=== PATIENT | male | born 1955 | race Caucasian/White ===

== ENCOUNTER → 2023-01-20 | Outpatient (CLI) | payer MEDICARE | END | disposition home or self-care (01) | LOC: PLD 11:04 → LAB SHORT 11:04 → LAB 11:04 | DX: L57.0 Actinic keratosis (principal) | CPT/HCPCS: 88305 ==

== ENCOUNTER 2023-02-22 07:31 | Observation (INO) | payer MEDICARE ==
[~2023-02-22] VITALS: Ht 177.8 cm; Wt 106.5 kg
[2023-02-22] MEDS ORDERED: METFORMIN HCL1000 M6 PO (07:46)
[2023-02-22] MEDS ORDERED: LATA.005SO BOTHEYES (07:46)
[2023-02-22] MEDS ORDERED: ROSUVASTATIN CA40 MG PO (07:46)
[2023-02-22] MEDS ORDERED: OMEGA-3 + D SO1 EACH PO (07:46)
[2023-02-22] MEDS ORDERED: OLMESARTAN-HCT1 EAC4 PO (07:46)
[2023-02-22] MEDS ORDERED: Toprol Xl200 MG (07:46)
[2023-02-22] MEDS ORDERED: FENOFIBRATE30 MG PO (07:47)
[2023-02-22] MEDS ORDERED: TRAM50 PO (07:47)
[2023-02-22] MEDS ORDERED: EZETIMIBE10 M6 PO (07:47)
[2023-02-22] MEDS ORDERED: SPIR25 (07:48)
[2023-02-22 08:15] LABS: BASOPHILS ABSOLUTE AUTO 0.02 K/mm3 (0.00-0.23); BASOPHILS PERCENT AUTO 0 % (0-2); EOSINOPHILS ABSOLUTE AUTO 0.18 K/mm3 (0.00-0.68); EOSINOPHILS PERCENT AUTO 4 % (0-6); Hematocrit 32.5 % (37.0-53.0); Hemoglobin 10.7 g/dL (13.5-17.5); IMMATURE GRAN ABSOLUTE AUTO 0.01 K/mm3 (0.00-0.10); IMMATURE GRAN PERCENT AUTO 0 % (0-1); LYMPHOCYTES ABSOLUTE AUTO 1.23 K/mm3 (0.84-5.20); LYMPHOCYTES PERCENT AUTO 24 % (21-46); MONOCYTES ABSOLUTE AUTO 0.53 K/mm3 (0.16-1.47); MONOCYTES PERCENT AUTO 10 % (4-13); Mean Corpuscular HGB Conc 32.9 g/dL (31.5-36.5); Mean Corpuscular Volume 91 fL (80-100); Mean Platelet Volume 10.3 fL (9.1-12.4); NEUTROPHILS ABSOLUTE AUTO 3.18 K/mm3 (1.96-9.15); NEUTROPHILS PERCENT AUTO 62 % (41-73); Platelet Count 216 K/mm3 (150-400); RDW Coefficient Variation 13.2 % (11.7-14.2); RDW Standard Deviation 44.1 fL (35.1-46.3); Red Blood Cell Count 3.57 M/mm3 (4.30-5.90); White Blood Cell Count 5.15 K/mm3 (4.00-11.30)
[2023-02-22 08:27] LABS: Albumin, Blood 3.9 g/dL (3.4-5.0); Albumin/Globulin Ratio 1.1 (0.8-1.8); Bilirubin, Total 0.3 mg/dL (0.1-1.0); Bun/Creatinine Ratio 22.3 (12.0-20.0); Calcium, Blood 9.2 mg/dL (8.5-10.1); Creatinine, Blood 1.57 mg/dL (0.60-1.20); Globulin, Blood 3.5 g/dL (2.2-4.0); Total Protein, Blood 7.4 g/dL (6.4-8.2)
[2023-02-22 15:25] VITALS: BP 158/82
[2023-02-22] MEDS ORDERED: ASPIR 8181 M1 PO (15:56)
--- NOTE | 2023-02-22 18:15 | NUR ---
SHIFT SUMMARY PT A&OX4 AND PLEASANT. PT DENIES FEELING SOB BUT STATES MINIMAL CP WITH EXERCTION. PT SCHEDULED FOR STRESS TEST TOMORROW MORNING. AT BEDSIDE DURING AFTERNOON. INDEPENDENT TO BATHROOM BUT EDUCATED PT ON USE OF CALL LIGHT TO HELP REMOVE SCD'S IF NEEDED. BED IN LOWEST POSITION AND CALL LIGHT IN REACH.
[2023-02-22 20:26] VITALS: BP 152/78
--- NOTE | 2023-02-22 23:58 | NUR ---
LATE NOTE. CONVERSATION WITH JESSICA IN NUCLEAR MEDICINE EARLIER THIS EVENING. JESSICA REPORTED TO ME THAT HE HAD A CONVERSATION WITH DR. RIZVI EARLIER IN THE DAY IN WHICH HE WAS INFORMED DMITRI WANTED A 2 PART STRESS TEST COMPLETED ON SATURDAY FOR THE PT. JESSICA HAD NOT RECEIVED AN ORDER FOR THIS AND REQUESTED THAT I PUT THE ORDER IN SO THE PROCEDURE CAN BE COMPLETED ON PT TOMORROW DURING THE DAY. ENTERED ORDER PER SPECIFICATION VIA VERBAL ORDER FROM DR. RIZVI TO JESSICA IN NUCLEAR MEDICINE.
[2023-02-23 03:27] VITALS: BP 150/83
--- NOTE | 2023-02-23 03:59 | NUR ---
SHIFT UNREMARKABLE. CALL EARLY IN SHIFT FROM JESSICA IN NUCLEAR MEDICINE, REQUESTING ORDER FOR STRESS TEST VERBALLY REQUESTED TO HIM FROM DR. RIZVI. ORDER INPUT. SEE RELATED NOTE FOR DETAILS. SHIFT HAS OTHERWISE BEEN UNREMARKABLE. NPO SINCE MIDNIGHT OUTSIDE OF VERY SMALL AMOUNTS OF WATER AND PRN TYLENOL FOR MILD HEADACHE THIS MORNING. PT HAS BEEN AOX4, PLEASANT, COOPERATIVE WITH CARE THROUGHOUT SHIFT. BED LOCKED IN LOWEST POSITION. CALL LIGHT LEFT WITHIN REACH.
[2023-02-23 06:36] LABS: BASOPHILS ABSOLUTE AUTO 0.02 K/mm3 (0.00-0.23); BASOPHILS PERCENT AUTO 0 % (0-2); EOSINOPHILS ABSOLUTE AUTO 0.13 K/mm3 (0.00-0.68); EOSINOPHILS PERCENT AUTO 2 % (0-6); Hematocrit 34.7 % (37.0-53.0); Hemoglobin 11.3 g/dL (13.5-17.5); IMMATURE GRAN ABSOLUTE AUTO 0.02 K/mm3 (0.00-0.10); IMMATURE GRAN PERCENT AUTO 0 % (0-1); LYMPHOCYTES ABSOLUTE AUTO 1.35 K/mm3 (0.84-5.20); LYMPHOCYTES PERCENT AUTO 25 % (21-46); MONOCYTES ABSOLUTE AUTO 0.56 K/mm3 (0.16-1.47); MONOCYTES PERCENT AUTO 10 % (4-13); Mean Corpuscular HGB 29.7 pg (26.0-34.0); Mean Corpuscular HGB Conc 32.6 g/dL (31.5-36.5); Mean Corpuscular Volume 91 fL (80-100); Mean Platelet Volume 10.4 fL (9.1-12.4); NEUTROPHILS ABSOLUTE AUTO 3.32 K/mm3 (1.96-9.15); NEUTROPHILS PERCENT AUTO 61 % (41-73); Platelet Count 203 K/mm3 (150-400)
[2023-02-23 06:53] LABS: Albumin, Blood 3.9 g/dL (3.4-5.0); Albumin/Globulin Ratio 1.2 (0.8-1.8); Bilirubin, Total 0.4 mg/dL (0.1-1.0); Bun/Creatinine Ratio 21.1 (12.0-20.0); Calcium, Blood 9.7 mg/dL (8.5-10.1); Creatinine, Blood 1.52 mg/dL (0.60-1.20); Globulin, Blood 3.3 g/dL (2.2-4.0); Magnesium, Blood 1.4 mg/dL (1.6-2.4); Potassium, Blood 4.9 mmol/L (3.5-5.5); Total Protein, Blood 7.2 g/dL (6.4-8.2)
[2023-02-23 07:13] VITALS: BP 156/86
[2023-02-23 14:45] VITALS: BP 144/83
--- NOTE | 2023-02-23 19:00 | NUR ---
SHIFT SUMMARY PATIENT IS ALERT AND ORIENTED. PATIENT HAS HAD NO ACUTE EVENTS. PATIENT HAD STRESS TEST TODAY. PATIENT HAD ABNORMAL STRESS TEST. ANGIOGRAM PLANNED FOR TOMORROW MORNING. NPO AT MIDNIGHT. PATIENT IS AWARE.
[2023-02-23 20:24] VITALS: BP 147/93
[2023-02-24] VITALS (9 sets, daily range): BP systolic 145–168; BP diastolic 77–109
--- NOTE | 2023-02-24 04:06 | NUR ---
SHIFT SUMMARY; NO ACUTE CHANGES OVERNIGHT. THE PT IS AXO X4 AND INDEPENDENT IN THE ROOM. THE PT HAS BEEN SLEEPING FOR THE MAJORITY OF THE NIGHT. THE PT HAS BEEN NPO SINCE MIDNIGHT IN PREPERATION TO GO TO THE [employer]TRY AUDIT CLERK TODAY. THE PT HAS HIS LAST BAG OF NS INFUSING NOW. TELE IS IN PLACE. THE PT DENIES ANY CHEST PAIN/PRESSURE, PAIN, SOB OR N/V THIS SHIFT. CURRENTLY THE PT IS SLEEPING IN BED WITH THE BED IN THE LOWEST POSITION AND THE CALL LIGHT AT BEDSIDE.
[2023-02-24 09:40] LABS: BASOPHILS ABSOLUTE AUTO 0.02 K/mm3 (0.00-0.23); BASOPHILS PERCENT AUTO 0 % (0-2); EOSINOPHILS PERCENT AUTO 2 % (0-6); Hemoglobin 11.1 g/dL (13.5-17.5); IMMATURE GRAN ABSOLUTE AUTO 0.01 K/mm3 (0.00-0.10); IMMATURE GRAN PERCENT AUTO 0 % (0-1); LYMPHOCYTES ABSOLUTE AUTO 0.98 K/mm3 (0.84-5.20); LYMPHOCYTES PERCENT AUTO 19 % (21-46); MONOCYTES ABSOLUTE AUTO 0.51 K/mm3 (0.16-1.47); MONOCYTES PERCENT AUTO 10 % (4-13); Mean Corpuscular HGB 29.7 pg (26.0-34.0); Mean Corpuscular HGB Conc 32.6 g/dL (31.5-36.5); Mean Corpuscular Volume 91 fL (80-100); Mean Platelet Volume 10.1 fL (9.1-12.4); NEUTROPHILS PERCENT AUTO 68 % (41-73); Platelet Count 213 K/mm3 (150-400); RDW Coefficient Variation 13.1 % (11.7-14.2); RDW Standard Deviation 43.6 fL (35.1-46.3); Red Blood Cell Count 3.74 M/mm3 (4.30-5.90); White Blood Cell Count 5.12 K/mm3 (4.00-11.30)
[2023-02-24 09:56] LABS: Bun/Creatinine Ratio 19.6 (12.0-20.0); Calcium, Blood 9.3 mg/dL (8.5-10.1); Creatinine, Blood 1.43 mg/dL (0.60-1.20); Potassium, Blood 4.7 mmol/L (3.5-5.5)
--- NOTE | 2023-02-24 12:33 | NUR ---
[facility] TAKEN TO [facility] REPORT CALLED TO SHAYNA VALLE IN PCU FOR AFTER PROCEDURE. FAMILY AWARE OF NEW ROOM IN PCU.
--- NOTE | 2023-02-24 14:29 | NUR ---
POST ANIMAL BIOLOGIST TO PCU 05. RIGHT RADIAL, TR BAND IN PLACE WITH ARM BOARD. DENIES CHEST PAIN/PRESSURE. VERY SMALL HEMATOMA FORMED PROXIMAL TO TR BAND AROUND 1400. PRESSURE HELD FOR 5 MIN, HEMATOMA REDUCED AND REMAINS SOFT POST PRESSURE. AT BEDSIDE AND UPDATED. POST VITAL SIGNS IN PROGRESS. PLAN TO TRANSFER TO [facility]. WILL BE NPO AT MIDNIGHT. DR. PIMENTEL BY TO SEE PATIENT. PLAN TO START HEPARIN AT 1800, IF TR BAND HAS BEEN REMOVED AND WNL. THIS RN CALLED PHARMACY TO UPDATE. NS INFUSING PER EMAR. POST ANGIO RADIAL PRECAUTIONS REVIEWED WITH PATIENT. LUNG SOUNDS WNL. ON ROOM AIR. TELE SHOWING SR WITH HR 70'S. DENIES CHEST PAIN/PRESSURE. NO EDEMA NOTED. DENIES ABDOMINAL PAIN/NAUSEA. EATING SNACK AT THIS TIME. ORIENTED TO ROOM/CALL LIGHT.
--- NOTE | 2023-02-24 14:37 | NUR ---
DR. RIZVI TO BEDSIDE. UPDATED ON ANGIO RESULTS. THIS RN AT BEDSIDE DURING VISIT. PRESENT.
--- NOTE | 2023-02-24 15:55 | NUR ---
TRANSFER TO [facility]. EMS IN TO PICK PATIENT UP. NO ACUTE CHANGES. POST VITAL SIGNS REMAIN STABLE. RIGHT RADIAL SITE UNCHANGED. TR BAND REMAINS IN PLACE WITH ARM BOARD. AT BEDSIDE FOR TRANSFER. REPORT CALLED INTO ACCEPTING NURSE. PATIENT TO BE IN ROOM 380.
== END 2023-02-24 15:30 | disposition short-term general hospital (02) ==
LOC: ER 07:31 → MEDS 07:32 → PCU 02-24 13:20
PROVIDERS: Emergency Medicine; ADMIT Internal Medicine
DX: I25.10 Atherosclerotic heart disease of native coronary artery without angina pectoris (principal); I25.2 Old myocardial infarction; I12.9 Hypertensive chronic kidney disease with stage 1 through stage 4 chronic kidney disease, or unspecified chronic kidney disease; E11.22 Type 2 diabetes mellitus with diabetic chronic kidney disease; N18.30 Chronic kidney disease, stage 3 unspecified; D64.9 Anemia, unspecified
CPT/HCPCS: 36415; 71045; 76937; 78452; 80048; 80053; 82947; 83735; 84484; 85025; 93005; 93010; 93017; 93458; 93971; 96372; 96374; 99152; 99285-25; A9270; A9500; C1769; C1887; C1894; G0378; J0706; J1644; J1650; J2250; J2785; J3010; J3475; J7030; J7050; Q9967

== ENCOUNTER 2023-03-02 10:47 | Emergency (ER) | payer MEDICARE ==
[~2023-03-02] VITALS: Ht 170.2 cm; Wt 83.9 kg
[~2023-03-02 10:47] MED LIST: ASPIR 8181 M1 PO; EZETIMIBE10 M6 PO; FENOFIBRATE30 MG PO; LATA.005SO BOTHEYES; METFORMIN HCL1000 M6 PO; OLMESARTAN-HCT1 EAC4 PO; OMEGA-3 + D SO1 EACH PO; ROSUVASTATIN CA40 MG PO; SPIR25; TRAM50 PO; Toprol Xl200 MG
[2023-03-02 10:58] VITALS: BP 123/71
[2023-03-02] MEDS ORDERED: TRIDERM28.4 GM TOP (11:05)
[2023-03-02] MEDS ORDERED: PRED20 PO (11:05)
[2023-03-02] MEDS ORDERED: Ativan1 MG PO (11:06)
== END 2023-03-02 13:00 | disposition home or self-care (01) ==
LOC: ER 10:47
DX: L27.0 Generalized skin eruption due to drugs and medicaments taken internally (principal); T44.7X5A Adverse effect of beta-adrenoreceptor antagonists, initial encounter; T45.525A Adverse effect of antithrombotic drugs, initial encounter; E11.22 Type 2 diabetes mellitus with diabetic chronic kidney disease; N18.30 Chronic kidney disease, stage 3 unspecified; Z79.82 Long term (current) use of aspirin; Z79.84 Long term (current) use of oral hypoglycemic drugs; X58.XXXA Exposure to other specified factors, initial encounter
CPT/HCPCS: 99282

== ENCOUNTER 2024-07-22 04:42 | Day surgery (SDC) | payer MEDICARE ==
[~2024-07-22 04:42] MED LIST changes: +Ativan1 MG PO; +PRED20 PO; +TRIDERM28.4 GM TOP
[2024-07-22] MEDS ORDERED: INCLISIRAN SODIUM 284 MG/1.5 ML SYRINGE SC SCH (06:00)
[2024-07-22 09:44] VITALS: BP 152/78
[2024-07-22] MEDS ORDERED: IRON PO (10:05)
[2024-07-22] MEDS ORDERED: METO25ER PO (10:06)
[2024-07-22] MEDS ORDERED: JARDIANCE25 MG PO (10:06)
[2024-07-22] MEDS ORDERED: Crestor40 MG PO (10:07)
== END 2024-07-22 10:15 | disposition home or self-care (01) ==
LOC: ATC 04:42
DX: E78.5 Hyperlipidemia, unspecified (principal); I25.10 Atherosclerotic heart disease of native coronary artery without angina pectoris; Z98.61 Coronary angioplasty status; I12.9 Hypertensive chronic kidney disease with stage 1 through stage 4 chronic kidney disease, or unspecified chronic kidney disease; E11.22 Type 2 diabetes mellitus with diabetic chronic kidney disease; N18.2 Chronic kidney disease, stage 2 (mild); Z79.899 Other long term (current) drug therapy; Z91.040 Latex allergy status; Z87.891 Personal history of nicotine dependence
CPT/HCPCS: 96372; J1306

== ENCOUNTER 2024-10-22 01:40 | Day surgery (SDC) | payer MEDICARE ==
[~2024-10-22 01:40] MED LIST changes: +Crestor40 MG PO; +IRON PO; +JARDIANCE25 MG PO; +METO25ER PO
[2024-10-22] MEDS ORDERED: INCLISIRAN SODIUM 284 MG/1.5 ML SYRINGE SC SCH (06:00)
[2024-10-22 07:58] VITALS: BP 137/70
[2024-10-22] MEDS ORDERED: LEQVIO284 MG/1.5 SC (08:03)
== END 2024-10-22 08:03 | disposition home or self-care (01) ==
LOC: ATC 01:40
DX: E78.5 Hyperlipidemia, unspecified (principal); I25.10 Atherosclerotic heart disease of native coronary artery without angina pectoris; Z98.61 Coronary angioplasty status; I12.9 Hypertensive chronic kidney disease with stage 1 through stage 4 chronic kidney disease, or unspecified chronic kidney disease; E11.22 Type 2 diabetes mellitus with diabetic chronic kidney disease; N18.2 Chronic kidney disease, stage 2 (mild); Z79.899 Other long term (current) drug therapy; Z91.040 Latex allergy status; Z91.018 Allergy to other foods; Z87.891 Personal history of nicotine dependence
CPT/HCPCS: 96372; J1306

== ENCOUNTER 2025-04-22 01:38 | Day surgery (SDC) | payer MEDICARE ==
[~2025-04-22 01:38] MED LIST changes: +INCLISIRAN SODIUM 284 MG/1.5 ML SYRINGE SC SCH; +LEQVIO284 MG/1.5 SC
[2025-04-22 08:25] VITALS: BP 131/79
[2025-04-22] MEDS ORDERED: LEQVIO284 MG/1.5 SC (09:11)
== END 2025-04-22 08:34 | disposition home or self-care (01) ==
LOC: ATC 01:38
DX: I12.9 Hypertensive chronic kidney disease with stage 1 through stage 4 chronic kidney disease, or unspecified chronic kidney disease (principal); E11.22 Type 2 diabetes mellitus with diabetic chronic kidney disease; N18.32 Chronic kidney disease, stage 3b; E78.5 Hyperlipidemia, unspecified; M21.41 Flat foot [pes planus] (acquired), right foot; N25.81 Secondary hyperparathyroidism of renal origin; D50.9 Iron deficiency anemia, unspecified; I25.10 Atherosclerotic heart disease of native coronary artery without angina pectoris; Z87.891 Personal history of nicotine dependence; Z79.82 Long term (current) use of aspirin; Z79.899 Other long term (current) drug therapy; Z91.030 Bee allergy status; Z91.048 Other nonmedicinal substance allergy status; Z95.5 Presence of coronary angioplasty implant and graft; Z96.651 Presence of right artificial knee joint
CPT/HCPCS: 96372; J1306

== ENCOUNTER 2025-07-20 09:53 | Day surgery (SDC) | payer MEDICARE ==
[2025-07-20] VITALS (15 sets, daily range): BP systolic 83–159; BP diastolic 49–86
[~2025-07-20] VITALS: Ht 177.8 cm; Wt 98.7 kg
[~2025-07-20 09:53] MED LIST changes: -Crestor40 MG PO; +FERSU300 PO; -INCLISIRAN SODIUM 284 MG/1.5 ML SYRINGE SC SCH; +ROSUVASTATIN CA10 MG PO
[2025-07-20] MEDS ORDERED: Prochlorperazine Edisylate 10 mg Vial IV PRN (10:35)
[2025-07-20] MEDS ORDERED: Metoclopramide HCl 5MG / ML 2ML Vial IV PRN ×2 (10:40→11:15)
[2025-07-20] MEDS ORDERED: Magnesium Hydroxide Conc 10 ML UDC PO PRN (10:40)
[2025-07-20] MEDS ORDERED: HYDROmorphone HCl/Pf 1MG SYR IV PRN ×2 (10:40→11:15)
[2025-07-20] MEDS ORDERED: Ondansetron HCl 2 MG / ML 2ML Vial IV PRN ×2 (10:40→11:15)
[2025-07-20] MEDS ORDERED: Ropivacaine 0.5% HCl/Pf 123.125 MG,EPINEPHrine HCL 0.25 MG,Ketorolac Tromethamine 15 MG... INFIL SCH (10:45)
[2025-07-20] MEDS ORDERED: Chlorhexidine Mouth Care 15 ML UDC MT SCH (10:45)
[2025-07-20] MEDS ORDERED: Tranexamic Acid 100 ML IV SCH (10:45)
[2025-07-20] MEDS ORDERED: CeFAZolin Sodium 2,000 MG in NS 100 ML IV SCH ×2 (10:45→20:30)
[2025-07-20] MEDS ORDERED: FLU VACC TS2025(65UP)/MF59C/PF 45 MCG/0.5 ML SYRINGE IM SCH (10:55)
[2025-07-20] MEDS ORDERED: FentaNYL Citrate 50 MCG/ML 2 ML Injection IV PRN ×2 (11:15)
[2025-07-20] MEDS ORDERED: Morphine Sulfate 4 MG/1 ML Injection IV PRN (11:15)
[2025-07-20] MEDS ORDERED: HYDROmorphone HCl/Pf 1MG SYR ONE (11:48)
[2025-07-20] MEDS ORDERED: Metoclopramide HCl 5MG / ML 2ML Vial ONE (11:48)
[2025-07-20] MEDS ORDERED: Ondansetron HCl 2 MG / ML 2ML Vial ONE (11:48)
[2025-07-20] MEDS ORDERED: Midazolam HCl 1MG / ML 2ML Vial ONE ×2 (11:48→12:54)
--- NOTE | 2025-07-20 12:03 | NUR ---
Ambulatory in Day Surgery WITH STEADY GAIT. History, Chart, Medications and Allergies reviewed before start of procedure. Pre-Op teaching done. Pt verbalizes understanding. Patient States Post-Procedure ride home has been arranged WITH SPOUSE. SPOUSE AT BEDSIDE DURING PRE OP. WARM BLANKET PROVIDED. CALL LIGHT IN REACH.
[2025-07-20] MEDS ORDERED: [UNRECOGNIZED DRUG - OTHER] SC SCH (12:30)
[2025-07-20] MEDS ORDERED: Phenylephrine HCl 100 MCG/ML-NS 10MLSYR (1MG/10ML) ONE (14:09)
[2025-07-20] MEDS ORDERED: ePHEDrine Sulfate 50 MG/ML 1ML Injection ONE (14:42)
--- NOTE | 2025-07-20 15:18 | NUR ---
pt arrived to room 217 from pacu ARRIVED IN BED. A&OX4. DENIES PAIN. REPORTS SLIGHTLY DECREASED SENSATION BUT ABLE TO FEEL FROM HIP TO TOES. ABLE TO WIGGLE BLE. VSS. ORIENTED TO USE OF CALL LIGHT.
--- NOTE | 2025-07-20 16:14 | NUR ---
SUMMARY PT ARRIVED TO UNIT THIS AFTERNOON. A&OX4. DENIED PAIN. ABLE TO WIGGLE LEGS, SLIGHTLY DECREASED SENSATION FROM HIPS TO TOES BUT CAN FEEL ALL THE WAY DOWN LENGTH OF LEG. DRESSING TO R ANTERIOR HIP CDI. WAS STRAIGHT CATH'D IN PACU, HAS NOT VOIDED SINCE ARRIVAL TO UNIT. CALL LIGHT IN REACH.
[2025-07-20] MEDS ORDERED: Insulin Regular 100 UNIT/ML 10ML Vial SC SCH (16:30)
--- NOTE | 2025-07-20 17:47 | NUR ---
SHIFT SUMMARY PT DUE TO VOID SINCE 1499. TAKING OXYCODONE 5MG FOR PAIN. NOT OOB YET; SPINAL BLOCK STILL IN PLACE. PT IS AN ELECTIVE SURGERY.
[2025-07-20] MEDS ORDERED: Ketorolac Tromethamine 15mg Vial IV SCH (18:00)
[2025-07-20] MEDS ORDERED: Latanoprost 0.005% Opth Soln 2.5 ML BOTHEYES SCH (21:00)
[2025-07-21 04:17] VITALS: BP 142/77
[2025-07-21 05:28] LABS: BASOPHILS ABSOLUTE AUTO 0.02 K/mm3 (0.00-0.23); BASOPHILS PERCENT AUTO 0 % (0-2); EOSINOPHILS ABSOLUTE AUTO 0.05 K/mm3 (0.00-0.68); EOSINOPHILS PERCENT AUTO 1 % (0-6); Hematocrit 34.6 % (37.0-53.0); Hemoglobin 11.5 g/dL (13.5-17.5); IMMATURE GRAN ABSOLUTE AUTO 0.03 K/mm3 (0.00-0.10); IMMATURE GRAN PERCENT AUTO 0 % (0-1); LYMPHOCYTES ABSOLUTE AUTO 0.86 K/mm3 (0.84-5.20); LYMPHOCYTES PERCENT AUTO 11 % (21-46); MONOCYTES ABSOLUTE AUTO 0.74 K/mm3 (0.16-1.47); MONOCYTES PERCENT AUTO 9 % (4-13); Mean Corpuscular HGB Conc 33.2 g/dL (31.5-36.5); Mean Corpuscular Volume 94 fL (80-100); NEUTROPHILS ABSOLUTE AUTO 6.33 K/mm3 (1.96-9.15); NEUTROPHILS PERCENT AUTO 79 % (41-73); NRBC ABSOLUTE 0.00 K/mm3 (0.00-0.02); NRBC Auto 0.0 /100 WBC (0.0-0.2); Platelet Count 156 K/mm3 (150-400); RDW Coefficient Variation 13.2 % (11.7-14.2); RDW Standard Deviation 45.2 fL (35.1-46.3)
--- NOTE | 2025-07-21 06:00 | NUR ---
SHIFT SUMMARY POD 1 R TOTAL HIP ARTHROPLASTY. A&O X4. PAIN MANAGED WELL PER EMAR. PT DENIES N&V. DRESSING TO R HIP C/D/I. PT DENIES N/T, PULSES EQUAL BILATERALLY, CAP REFILL < [address] IN [address]. 1 PERSON ASSIST WITH FWW AND GAIT BELT. PT URINATING INDEPENDENTLY UTILIZING URINAL. PLAN TO DISCHARGE TODAY. CALL LIGHT WITHIN REACH.
[2025-07-21 06:11] LABS: Anion Gap 7.0 mmol/L (3-11); Blood Urea Nitrogen 29.0 mg/dL (8-24); CO2, Blood 27.0 mmol/L (21-32); Calcium, Blood 8.3 mg/dL (8.5-10.1); Chloride, Blood 101.0 mmol/L (98-108); Creatinine, Blood 1.35 mg/dL (0.60-1.20); Glucose, Blood 119.0 mg/dL (70-99); Potassium, Blood 5.1 mmol/L (3.5-5.5); Sodium, Blood 130.0 mmol/L (136-145)
[2025-07-21 07:12] VITALS: BP 144/73
[2025-07-21 09:58] VITALS: BP 133/74
--- NOTE | 2025-07-21 10:17 | NUR ---
discharging PT CLEARED THERAPY. TOLERATING DIET, VOIDING, PAIN CONTROLLED W/PO PAIN MEDS. REVIEWED DC INSTRUCTIONS W/PT AND SPOUSE. VERBALIZED UNDERSTANDING. SPOUSE PULLING UP TO PATIENT ENTRANCE. HAD POSSESSIONS AND DC PAPERWORK IN HAND.
--- NOTE | 2025-07-21 10:19 | NUR ---
DISCHARGED PT LEFT UNIT IN TO MEET RIDE OUTSIDE.
== END 2025-07-21 10:22 | disposition home or self-care (01) ==
LOC: ORSCMMR 09:53 → SURS 14:58 → ORSCMMR 07-21 10:22
PROVIDERS: Orthopaedic Surgery
PROC: 0SR90JZ Replacement of Right Hip Joint with Synthetic Substitute, Open Approach (ICD-10-PCS; principal; 2025-07-20 11:15)
DX: M16.11 Unilateral primary osteoarthritis, right hip (principal); I25.2 Old myocardial infarction; Z79.899 Other long term (current) drug therapy; E66.9 Obesity, unspecified; Z68.31 Body mass index [BMI] 31.0-31.9, adult; Z79.82 Long term (current) use of aspirin; Z79.84 Long term (current) use of oral hypoglycemic drugs; E11.9 Type 2 diabetes mellitus without complications; E78.5 Hyperlipidemia, unspecified; Z96.651 Presence of right artificial knee joint
CPT/HCPCS: 36415; 72170; 80048; 82947; 85025; 97110; 97116; 97161; 97530; A9270; C1776; J0166; J0690; J0735; J1171; J1815; J1885; J2250; J2371; J2405; J2765; J2795; J3373; J7050; J7120